=== PATIENT | female | born 1980 | race Caucasian/White ===

== ENCOUNTER 2018-07-30 05:34 | Inpatient (IN) | payer BC ==
[2018-07-30] MEDS ORDERED: cefOXitin 2 GM in Sodium Chloride 0.9% 50 ML IV ONE (06:00)
[2018-07-30] MEDS ORDERED: Dextrose 5%-Lactated Ringers 1,000 ML IV SCH (06:00)
[2018-07-30] MEDS ORDERED: Acetaminophen 500 MG Tab PO ONE (06:00)
[2018-07-30] MEDS ORDERED: Bupivacaine 0.5%/EPINEPHrine 1:200,000 50 ML MDV ONE (06:37)
[2018-07-30] MEDS ORDERED: Rocuronium 50 MG/5 ML Vial ONE ×2 (06:58→09:02)
[2018-07-30] MEDS ORDERED: Dexamethasone 4 MG/ML SDV ONE (06:58)
[2018-07-30] MEDS ORDERED: Glycopyrrolate 0.2 MG/ML 5 ML MDV ONE (06:58)
[2018-07-30] MEDS ORDERED: Propofol 200 MG/20 ML SDV ONE (06:58)
[2018-07-30] MEDS ORDERED: Neostigmine Methylsulfate 1 MG/ML 5 ML Syringe ONE (06:58)
[2018-07-30] MEDS ORDERED: Succinylcholine 200 MG/10 ML MDV ONE (06:58)
[2018-07-30] MEDS ORDERED: Ondansetron 4 MG/2 ML SDV ONE (06:58)
[2018-07-30] MEDS ORDERED: fentaNYL 250 MCG/5 ML SDV ONE ×2 (06:59→08:59)
[2018-07-30] MEDS ORDERED: Midazolam 1 MG/ML 2 ML SDV ONE (06:59)
[2018-07-30] MEDS ORDERED: Ketamine 500 MG/5 ML MDV IV SCH (07:30)
[2018-07-30] MEDS ORDERED: cefOXitin 2 GM Vial ONE (07:59)
[2018-07-30] MEDS ORDERED: Meropenem 500 MG SDV ONE (08:01)
[2018-07-30] MEDS ORDERED: Lactated Ringers 1,000 ML ONE (09:17)
[2018-07-30] MEDS ORDERED: hydrOXYzine HCl 100 MG/2 ML SDV IM ONE (10:07)
[2018-07-30] MEDS ORDERED: fentaNYL 100 MCG/2 ML SDV IVPUSH ONE ×2 (10:32→10:33)
[2018-07-30] MEDS ORDERED: Naloxone 0.4 MG/ML SDV IV PRN (10:38)
[2018-07-30] MEDS: HYDROmorphone/Normal Saline 15 MG/30 ML PCA IV PRN (10:52)
[2018-07-30] MEDS ORDERED: Metoclopramide 10 MG/2 ML SDV IVPUSH PRN (12:04)
[2018-07-30] MEDS ORDERED: HYDROmorphone 1 MG/ML Syringe IV PRN (12:04)
[2018-07-30] MEDS ORDERED: HYDROmorphone 0.5 MG/0.5 ML Syringe IVPUSH PRN (12:04)
[2018-07-30] MEDS ORDERED: hydrOXYzine HCl 100 MG/2 ML SDV IM PRN (12:04)
[2018-07-30] MEDS ORDERED: Labetalol 20 MG/4 ML Syringe IVPUSH PRN (12:04)
[2018-07-30] MEDS ORDERED: diphenhydrAMINE 50 MG/ML SDV IVPUSH PRN (12:04)
[2018-07-30] MEDS ORDERED: Ondansetron 4 MG/2 ML SDV IVPUSH PRN (12:04)
[2018-07-30] MEDS: Sodium Ferric Gluconate Cmplex 250 MG in Sodium Chloride 0.9% 100 ML IV SCH (13:56)
[2018-07-30] MEDS ORDERED: MVI, Adult with Vitamin K 10 ML, Thiamine 200 MG, Chromium/Copper/Mang/Selen/Zn 1 ML in... IV SCH ×4 (16:00)
[2018-07-30] MEDS ORDERED: Pantoprazole 40 MG Vial IVPUSH SCH (16:00)
[2018-07-30] MEDS: cefOXitin 2 GM in Sodium Chloride 0.9% 50 ML IV SCH ×2 (16:21→21:13)
[2018-07-30] MEDS: Heparin Sodium 5,000 Units/ML Vial SUBCUT SCH (16:23)
[2018-07-30] MEDS: Acetaminophen 325 MG Tab PO SCH ×2 (16:24→21:13)
[2018-07-31] MEDS ORDERED: Iopamidol 510 MG/ML 50 ML SDV PO ONE (00:13)
[2018-07-31] MEDS: Dextrose 5%-Lactated Ringers 1,000 ML IV SCH ×2 (00:34→08:00)
[2018-07-31] MEDS: Acetaminophen 325 MG Tab PO SCH ×4 (03:26→21:01)
[2018-07-31] MEDS: Heparin Sodium 5,000 Units/ML Vial SUBCUT SCH ×2 (03:27→16:19)
[2018-07-31] MEDS: cefOXitin 2 GM in Sodium Chloride 0.9% 50 ML IV SCH (03:32)
--- NOTE | 2018-07-31 06:19 | CRLCR ---
Indication: Milena-en-Y gastric bypass. Technique: Abdomen 2 view Comparison: None Findings/Impression: Two submitted images. Image number 1 demonstrates skin saul in a vertical incision pattern, suture material within the left abdomen as well as right upper quadrant surgical clips. Administered oral contrast extends into the distal esophagus as well as the proximal small bowel. Second image shows a small amount of residual contrast in the epigastric region, possibly within bowel as well as progression of the contrast into the mid to distal small bowel. Dictated by Keith Paris MD @ Jul 31 2018 6:16AM Signed by Dr. Keith Paris @ Jul 31 2018 6:18AM
[2018-07-31] MEDS ORDERED: Dextrose 5%-Lactated Ringers 1,000 ML IV SCH (08:15)
[2018-07-31] MEDS: Docusate Sodium 100 MG Cap PO SCH ×2 (10:19→20:14)
[2018-07-31] MEDS: SCOPOLAMINE PATCH CHECK TOP SCH (10:20)
[2018-07-31] MEDS: Magnesium Sulfate/Water 2 GM in Premix Bag 1 BAG IV SCH ×3 (10:21→21:00)
[2018-07-31] MEDS: HYDROmorphone/Normal Saline 15 MG/30 ML PCA IV PRN (12:33)
[2018-07-31] MEDS: Sodium Ferric Gluconate Cmplex 250 MG in Sodium Chloride 0.9% 100 ML IV SCH (13:14)
[2018-07-31] MEDS: MVI, Adult with Vitamin K 10 ML, Thiamine 200 MG, Chromium/Copper/Mang/Selen/Zn 1 ML in... IV SCH ×4 (16:19)
[2018-07-31] MEDS: Pantoprazole 40 MG Delayed-Release Granules 1 Packet PO SCH (16:19)
[2018-07-31] MEDS ORDERED: Tamsulosin 0.4 MG Cap.ER PO ONE ×2 (17:00→21:00)
[2018-08-01] MEDS: Magnesium Sulfate/Water 2 GM in Premix Bag 1 BAG IV SCH ×3 (03:00→15:46)
[2018-08-01] MEDS: Acetaminophen 325 MG Tab PO SCH ×4 (03:01→21:03)
[2018-08-01] MEDS: Heparin Sodium 5,000 Units/ML Vial SUBCUT SCH ×2 (03:01→15:48)
[2018-08-01] MEDS ORDERED: Magnesium Hydroxide 400 MG/5 ML Susp 30 ML Cup PO PRN (08:08)
[2018-08-01] MEDS ORDERED: Tamsulosin 0.4 MG Cap.ER PO ONE (09:00)
[2018-08-01] MEDS ORDERED: Cyanocobalamin (Vitamin B12) 1,000 MCG/ML SDV IM ONE (09:00)
[2018-08-01] MEDS: Bisacodyl 5 MG Tab PO SCH ×2 (09:29→20:50)
[2018-08-01] MEDS: SCOPOLAMINE PATCH CHECK TOP SCH (09:30)
[2018-08-01] MEDS: buPROPion 100 MG Tab PO SCH ×2 (09:30→20:50)
[2018-08-01] MEDS: HYDROmorphone 2 MG Tab PO PRN ×3 (11:28→20:50)
--- NOTE | 2018-08-01 12:07 | PN ---
DATE OF SERVICE: 07/31/2018 The patient has been afebrile with stable vital signs. Still having a fair bit of discomfort at this point and PET CREMATORY WORKER is going for today. Otherwise, upper GI x-ray looks good. We will start a step-3 diet. Magnesium is somewhat low, we will supplement that, and otherwise maximize activity and work with pulmonary toilet. Narendra Marcos MD /[id number]
[2018-08-01] MEDS: MVI, Adult with Vitamin K 10 ML, Thiamine 200 MG, Chromium/Copper/Mang/Selen/Zn 1 ML in... IV SCH ×4 (15:45)
[2018-08-01] MEDS: Pantoprazole 40 MG Delayed-Release Granules 1 Packet PO SCH (15:48)
[2018-08-01] MEDS ORDERED: Tamsulosin 0.4 MG Cap.ER PO SCH (21:00)
[2018-08-02] MEDS: HYDROmorphone 2 MG Tab PO PRN ×3 (01:04→08:51)
[2018-08-02] MEDS: Heparin Sodium 5,000 Units/ML Vial SUBCUT SCH (04:51)
[2018-08-02] MEDS: Acetaminophen 325 MG Tab PO SCH (04:51)
--- NOTE | 2018-08-02 11:12 | PN ---
DATE OF SERVICE: 08/01/2018 The patient has been afebrile with stable vital signs. No significant bowel movement yet, and she was retaining urine, requiring the Lewis catheter to be put back in. We will continue some Flomax, which was started yesterday and try getting the Lewis catheter out today. Otherwise, she can resume bowel stimulation. Oral intake is still a little bit marginal and will leave the IV running at maintenance rate and switch over to oral pain medication, will restart her Wellbutrin, and once her bowels move and after removal of the Lewis catheter tomorrow morning, she may be ready for discharge at that time. Narendra Marcos MD /[id number]
--- NOTE | 2018-08-03 06:43 | DISCH ---
ADMISSION DIAGNOSES: 1. Partial small bowel obstruction. 2. Acute chronic cholecystitis and cholelithiasis, on Single-port Milena-en-Y gastric bypass surgery. 3. Unspecified surgical malabsorption. 4. B12 deficiency. DISCHARGE DIAGNOSES: 1. Laparoscopy with laparoscopic cholecystectomy. 2. Conversion to open laparotomy with lysis of extensive adhesions. 3. Small bowel resection secondary to enterostomy for caodaism of the Milena-en-Y small bowel anatomy. 4. Mobilization of the omentum for chronic cholecystitis and cholelithiasis and partial small bowel obstruction at the jejunojejunostomy. Date of surgery 07/30/2018. Surgeon: Narendra Marcos M.D. 5. Iron deficiency anemia, low ferritin. HISTORY: Angeles Christina is a 37-year-old female with postprandial abdominal pain. After preoperative evaluation and discussion of possible risks and possible complications, she wished to proceed with surgical procedure. HOSPITAL COURSE: Angeles had her surgery on 07/31/2018. She had no operative complications. On postoperative day #1, she was afebrile. Vital signs were stable, and she continued with the JUNIOR ACCOUNT EXECUTIVE. Her upper GI looked good. Magnesium was replaced and she was started on a step 3 diet. On postoperative day #2, she was given some bowel stimulation. She did have a bowel movement in late night emr analyst. She has been ambulating. Oral intake adequate. Vital signs stable, and was ready to be discharged to home on Thursday08/02/2018. While hospitalized, she received 2 iron infusions. PHYSICAL EXAMINATION: GENERAL: Angeles Christina is a 37-year-old female. VITAL SIGNS: Height is 5 feet 3 inches. Weight is 270 pounds, BMI 47.8. TPR is 97.4, 84, 16, blood pressure 119/85. HEENT: Negative. NECK: Supple. HEART: Regular rate and rhythm. LUNGS: Clear. ABDOMEN: Midline stapled incision looks good. Roxy intact. Abdominal binder is on. EXTREMITIES: Without peripheral edema. DISPOSITION: Discharged to home. CONDITION: Stable and improving. FOLLOWUP: With Cierra Velasquez PA-C, at [facility] on 08/10/2018 at 10 a.m. HOME MEDICATIONS: 1. Dilaudid 2 mg one q.4 hours p.r.n. pain #42. 2. She is to resume her home medication of bupropion 100 mg p.o. b.i.d. 3. Multivitamin one twice daily. 4. Magnesium oxide 400 mg daily. 5. Vitamin D3 4000 international units daily. 6. Calcium citrate with vitamin D 1 p.o. twice daily. 7. B complex one daily. 8. Vitron-C one tablet oral daily. 9. Tylenol 650 mg p.o. q.12 hours. DIET: Step 3 gastric bypass diet until next appointment. Drink 8 to 10 glasses of water a day. ACTIVITY: No lifting greater than 10 pounds for 6 weeks. Other activity is walk at least 6 times daily inside your home. Driving, do not drive for 1 week and while on pain medication. Shower/bathing, may shower. Keep operative site clean and dry. Wear abdominal binder for 2 weeks and then as tolerated. Notify provider if any fever, increased pain, nausea or vomiting and use incentive spirometer 10 times every hour while awake for 1 week.
--- NOTE | 2018-08-03 09:37 | OR ---
DATE OF PROCEDURE: 07/30/2018 SURGEON: Narendra Marcos MD PREOPERATIVE DIAGNOSES: 1. Chronic cholecystitis and cholelithiasis. 2. Possible partial small bowel obstruction. POSTOPERATIVE DIAGNOSES: 1. Chronic cholecystitis and cholelithiasis. 2. Partial small bowel obstruction at jejunojejunostomy. 3. Extensive intraabdominal adhesions. OPERATIVE PROCEDURE: 1. Diagnostic laparoscopy with laparoscopic cholecystectomy (47829). 2. Conversion to open laparotomy with lysis of extensive adhesions and: a. Small bowel resection (92143). b. Secondary enteroenterostomy to restore Milena-en-Y small bowel anatomy (98789). c. Mobilization of omentum into pelvis to limit recurrent adhesion formation between pelvic and abdominal wall and underlying viscera (94039). ANESTHESIA: General. BUCKLE GLUER: Cierra Velasquez PA-C INDICATIONS FOR PROCEDURE: This is a 37-year-old, status post previous Milena-en-Y gastric bypass, presenting with recurrent episodes of upper abdominal pain. The pain appears to have 2 ongoing patterns, one is postprandial right upper quadrant pain, which radiates to the back. This is associated with extensive cholelithiasis and is felt to be related to a biliary colic. The patient also has episodes of postprandial crampy pain located in the epigastrium with the discomfort particularly on the left midabdomen suggestive of partial small-bowel obstruction related to a Milena-en-Y gastric bypass. Plan is to proceed with diagnostic laparoscopy, laparotomy if necessary, initial cholecystectomy, dilate the small bowel to see what extent there might be small-bowel obstruction and make corrective actions based on that. If the jejunojejunostomy needs to be resected, the patient has had problems with maintenance of weight loss following her gastric bypass and we would reconstruct via the small bowel anatomy in that case with a more malabsorptive small bowel configuration. She is aware that, if this happens to be done, she would have more frequent loose bowel movements and need to be somewhat more vigilant in terms of protein and vitamin maintenance. Otherwise, the risks of the procedure per se including bleeding, infection, injury to underlying viscera, leaks from various GI tract closures were all reviewed, and the patient wishes to proceed. DETAILS OF PROCEDURE: The patient was taken to the operating room, and after general endotracheal anesthesia was induced, she was placed in a lithotomy position. A Lewis catheter was inserted, and the abdomen prepped and draped. In the left lower quadrant, a transverse incision was made and peritoneal cavity entered under direct vision with an Optiview trocar, inflated to 15 mmHg pressure with CO2. The laparoscope was reintroduced. No underlying trocar insertion site injuries were seen. Following this, eventually 3 additional trocars were placed across the upper and mid abdomen. Initially, gallbladder was retracted upwards, and this was noted to be distended and somewhat edematous particularly in the area of the cystohepatic triangle, dissected with Harmonic scalpel. Some omental adhesions were taken down with Harmonic scalpel, and dissection then began on the gallbladder neck and continued down onto the gallbladder neck- cystic duct junction. Once this area was well delineated, along with the adjacent cystic artery, the gallbladder neck-cystic duct junction was divided with a JAIR stapler, and the underlying cystic artery was then clipped 3 times proximally and divided with Harmonic scalpel. The gallbladder was then dissected off the gallbladder bed and delivered through the epigastric trocar site. Off the field, the gallbladder was opened and was noted to contain innumerable small black stones. At this point, the small bowel was examined. As one traced the Milena limb down towards the jejunojejunostomy, this appeared to be entrapped in quite a bit in the way of adhesions that were fairly posterior and not easily visualized by means of the laparoscopic approach. Given this, decision was made to proceed with a small open laparotomy for correction of this problem. After removal of the trocars, then epigastric incision from the umbilicus roughly a handsbreadth towards the xiphoid was made and carried down through the full-thickness abdominal wall. Upon entering the peritoneal cavity, the area of the jejunojejunostomy was once again addressed. This was noted to be entrapped quite a bit in a way of adhesions. These were freed up with electrocautery, and once these were freed up, it was felt that the patient had what appeared to be a stricture at the point where the Milena limb entered the jejunojejunostomy. At this point, this area was felt to need to be resected. The 3 components of the jejunojejunostomy were then divided with JAIR saul, and the underlying mesentery divided with JAIR saul as well and the specimen delivered from the field. GI tract continuity was then established initially with anastomosis between what had been the distal-most biliopancreatic limb to the proximal common limb with a [id number] enteroenterostomy with internal firing of an Endo-JARI 60 mm stapler. Common opening was closed transversely with the same stapler, the angles anastomosed, and the mesenteric defect was approximated with some 3-0 Vicryl stitch. The Milena limb at this point was noted to measure 80 cm, and our intent at this point is to leave an alimentary limb length of 300 cm. Thus, the ileocecal valve was identified and small bowel marked out back to a point 220 cm proximal to that point. The [id number] enteroenterostomy was accomplished between the Milena limb and the bowel at that level with same sequence of saul as the previous anastomosis. The angles were anastomosed and reinforced with 3-0 Vicryl stitch and the mesenteric defect then closed with a running 2-0 silk stitch to maintain some more permanency to that closure. The abdomen was then examined. No further problems were noted. To limit recurrent adhesion formation between the pelvic and abdominal wall and underlying viscera, the omentum was mobilized downward into the pelvis. This was sutured in the depths of the pelvis behind the urinary bladder with some 3-0 Vicryl stitch, and at that point, the midline fascia approximated with a #2 Vicryl stitch, subcutaneous tissue approximated with some 3-0 Vicryl stitch, and skin with saul. During the procedure, bilateral transversus abdominis plane block had also been placed, and the patient was taken to the recovery room in satisfactory condition. Physician outreach assistant, Cierra Velasquez PA-C, played an essential role in assisting in this case, helping to position the patient, retract structures as needed, and as well as suturing and cutting sutures when indicated. Her presence improved patient's safety and decreased the operative time. Narendra Marcos MD /[id number]
== END 2018-08-02 09:05 | disposition home or self-care (01) | DRG 221 ==
LOC: JP.SDSSCHI 05:34 → JP.SDS 05:34 → EDSTATUS 09:30 → JP.MS 09:30
PROVIDERS: ADMIT Surgery; ATTEND Surgery
PROC: 0FT44ZZ Resection of Gallbladder, Percutaneous Endoscopic Approach (ICD-10-PCS; principal; 2018-07-30)
PROC: 0DB80ZZ Excision of Small Intestine, Open Approach (ICD-10-PCS; principal; 2018-07-30)
PROC: 0DU Gastrointestinal System, Supplement (ICD-10-PCS; principal; 2018-07-30)
DX: K56.51 Intestinal adhesions [bands], with partial obstruction (principal); Z68.41 Body mass index [BMI] 40.0-44.9, adult; K80.66 Calculus of gallbladder and bile duct with acute and chronic cholecystitis without obstruction; K91.2 Postsurgical malabsorption, not elsewhere classified; E66.01 Morbid (severe) obesity due to excess calories; E53.8 Deficiency of other specified B group vitamins; E55.9 Vitamin D deficiency, unspecified; D50.9 Iron deficiency anemia, unspecified; K21.9 Gastro-esophageal reflux disease without esophagitis; F32.9 Major depressive disorder, single episode, unspecified; E28.2 Polycystic ovarian syndrome; K59.00 Constipation, unspecified; R33.9 Retention of urine, unspecified; Z98.84 Bariatric surgery status; Z79.899 Other long term (current) drug therapy
CPT/HCPCS: 36415; 51702; 74240; 80053; 81025; 82607; 82728; 82746; 83735; 84100; 85025; 94762; A9270-GY; C9113; J0171; J0330; J0694; J1100; J1170; J1644; J2001; J2185; J2250; J2405; J2704; J2710; J2795; J2916; J3010; J3410; J3411; J3420; J3475; J3490; J7030; J7042; J7050; J7120; Q9967

== ENCOUNTER 2018-12-10 05:28 | Inpatient (IN) | payer BC ==
[2018-12-10] MEDS ORDERED: Dextrose 5%-Lactated Ringers 1,000 ML IV SCH (05:45)
[2018-12-10] MEDS ORDERED: Acetaminophen 500 MG Tab PO ONE (05:45)
[2018-12-10] MEDS ORDERED: ceFAZolin 2 GM in Premix Bag 1 BAG IV ONE (06:00)
[2018-12-10] MEDS ORDERED: Bupivacaine 0.5%/EPINEPHrine 1:200,000 50 ML MDV ONE (06:29)
[2018-12-10] MEDS ORDERED: Meropenem 500 MG SDV ONE (06:29)
[2018-12-10] MEDS ORDERED: fentaNYL 250 MCG/5 ML SDV ONE (06:47)
[2018-12-10] MEDS ORDERED: Midazolam 1 MG/ML 2 ML SDV ONE (06:47)
[2018-12-10] MEDS ORDERED: Glycopyrrolate 0.2 MG/ML 5 ML MDV ONE (06:49)
[2018-12-10] MEDS ORDERED: Dexamethasone 4 MG/ML SDV ONE (06:49)
[2018-12-10] MEDS ORDERED: Ondansetron 4 MG/2 ML SDV ONE (06:49)
[2018-12-10] MEDS ORDERED: Neostigmine Methylsulfate 1 MG/ML 5 ML Syringe ONE (06:49)
[2018-12-10] MEDS ORDERED: Rocuronium 50 MG/5 ML Vial ONE (06:49)
[2018-12-10] MEDS ORDERED: Propofol 200 MG/20 ML SDV ONE (06:49)
[2018-12-10] MEDS ORDERED: Ketamine 50 MG in Sodium Chloride 0.9% 49.5 ML IV SCH ×4 (07:30)
[2018-12-10] MEDS ORDERED: ceFAZolin 2 GM in Sodium Chloride 0.9% 50 ML IV ONE (07:30)
[2018-12-10] MEDS ORDERED: Ketamine 500 MG/5 ML MDV IV SCH (07:30)
[2018-12-10] MEDS ORDERED: Lidocaine 1% 50 ML MDV ONE (08:02)
[2018-12-10] MEDS ORDERED: fentaNYL 100 MCG/2 ML SDV ONE (08:29)
[2018-12-10] MEDS ORDERED: diphenhydrAMINE 25 MG Cap PO PRN (09:07)
[2018-12-10] MEDS ORDERED: Ondansetron 4 MG/2 ML SDV IVPUSH PRN ×2 (09:07→10:23)
[2018-12-10] MEDS ORDERED: Naloxone 0.4 MG/ML SDV IVPUSH PRN (09:07)
[2018-12-10] MEDS ORDERED: diphenhydrAMINE 50 MG/ML SDV IVPUSH PRN (09:07)
[2018-12-10] MEDS ORDERED: hydrOXYzine HCl 100 MG/2 ML SDV IM ONE (09:09)
[2018-12-10] MEDS: HYDROmorphone/Normal Saline 15 MG/30 ML PCA IV SCH (09:19)
[2018-12-10] MEDS ORDERED: fentaNYL 100 MCG/2 ML SDV IVPUSH ONE (09:39)
[2018-12-10] MEDS ORDERED: Naloxone 0.4 MG/ML SDV IV PRN (10:24)
[2018-12-10] MEDS ORDERED: Cyclobenzaprine 10 MG Tab PO PRN (10:26)
[2018-12-10] MEDS ORDERED: hydrOXYzine HCl 100 MG/2 ML SDV IM PRN (10:26)
[2018-12-10] MEDS ORDERED: Magnesium Sulfate/Water 50 ML IV SCH (10:30)
[2018-12-10] MEDS ORDERED: Magnesium Sulfate/Water 2 GM in Premix Bag 1 BAG IV SCH (10:32)
[2018-12-10] MEDS: buPROPion 100 MG Tab PO SCH ×2 (10:48→20:28)
[2018-12-10] MEDS: Magnesium Sulfate/Water 2 GM in Premix Bag 1 BAG IV SCH ×3 (10:49→22:44)
[2018-12-10] MEDS: Pantoprazole 40 MG Vial IV SCH (10:49)
[2018-12-10] MEDS: Dextrose 5%-Lactated Ringers 1,000 ML IV SCH ×2 (12:25→20:03)
[2018-12-10] MEDS: ceFAZolin 2 GM in Sodium Chloride 0.9% 50 ML IV SCH ×2 (13:02→22:06)
[2018-12-10] MEDS: Sodium Ferric Gluconate Cmplex 250 MG in Sodium Chloride 0.9% 100 ML IV SCH (15:25)
[2018-12-11] MEDS: Dextrose 5%-Lactated Ringers 1,000 ML IV SCH ×3 (00:53→16:31)
[2018-12-11] MEDS: HYDROmorphone/Normal Saline 15 MG/30 ML PCA IV SCH (02:54)
[2018-12-11] MEDS: Magnesium Sulfate/Water 2 GM in Premix Bag 1 BAG IV SCH ×4 (05:26→21:38)
[2018-12-11] MEDS: ceFAZolin 2 GM in Sodium Chloride 0.9% 50 ML IV SCH (06:39)
[2018-12-11] MEDS ORDERED: Acetaminophen 325 MG Tab PO PRN (07:23)
[2018-12-11] MEDS: buPROPion 100 MG Tab PO SCH ×2 (08:10→20:35)
[2018-12-11] MEDS ORDERED: Acetaminophen 500 MG Tab PO PRN (08:18)
[2018-12-11] MEDS: Pantoprazole 40 MG Vial IV SCH (10:47)
[2018-12-11] MEDS: Docusate Sodium 100 MG Cap PO SCH ×2 (10:47→20:35)
[2018-12-11] MEDS: Bisacodyl 5 MG Tab PO SCH ×2 (10:47→20:35)
[2018-12-11] MEDS: Acetaminophen 500 MG Tab PO SCH ×2 (14:10→20:34)
[2018-12-11] MEDS: Sodium Ferric Gluconate Cmplex 250 MG in Sodium Chloride 0.9% 100 ML IV SCH (14:16)
[2018-12-11] MEDS ORDERED: Tamsulosin 0.4 MG Cap.ER PO ONE (16:55)
[2018-12-11] MEDS: Tamsulosin 0.4 MG Cap.ER PO SCH (20:37)
[2018-12-12] MEDS: Dextrose 5%-Lactated Ringers 1,000 ML IV SCH (03:02)
[2018-12-12] MEDS: Acetaminophen 500 MG Tab PO SCH ×4 (03:02→19:36)
[2018-12-12] MEDS: Magnesium Sulfate/Water 2 GM in Premix Bag 1 BAG IV SCH (03:53)
[2018-12-12] MEDS: Docusate Sodium 100 MG Cap PO SCH ×2 (08:41→20:50)
[2018-12-12] MEDS: Pantoprazole 40 MG Tab.CR PO SCH (08:41)
[2018-12-12] MEDS: Bisacodyl 5 MG Tab PO SCH ×2 (08:42→20:50)
[2018-12-12] MEDS: buPROPion 100 MG Tab PO SCH ×2 (08:42→20:51)
[2018-12-12] MEDS: HYDROmorphone 2 MG Tab PO PRN ×4 (08:46→20:54)
[2018-12-12] MEDS ORDERED: Ondansetron 4 MG Tab.DIS PO PRN (09:46)
[2018-12-12] MEDS: Tamsulosin 0.4 MG Cap.ER PO SCH (20:51)
[2018-12-13] MEDS: Acetaminophen 500 MG Tab PO SCH ×2 (02:35→07:45)
[2018-12-13] MEDS: HYDROmorphone 2 MG Tab PO PRN ×2 (02:35→07:45)
[2018-12-13] MEDS: Pantoprazole 40 MG Tab.CR PO SCH (07:46)
--- NOTE | 2018-12-13 08:43 | PN ---
DATE OF SERVICE: 12/11/2018 The patient has been afebrile with stable vital signs. Still having a fair bit of incisional pain, we will leave the ELECTRONIC TESTER going for today. However, we will back down the IV rate, go up to a step-2 diet, add some bowel stimulation, and maximize activity and work with pulmonary toilet. Narendra Marcos MD /[id number]
[2018-12-13] MEDS: buPROPion 100 MG Tab PO SCH (09:06)
[2018-12-13] MEDS: Docusate Sodium 100 MG Cap PO SCH (09:06)
[2018-12-13] MEDS: Bisacodyl 5 MG Tab PO SCH (09:06)
--- NOTE | 2018-12-13 11:19 | OR ---
DATE OF PROCEDURE: 12/10/2018 SURGEON: Narendra Marcos MD PREOPERATIVE DIAGNOSIS: Incisional hernia. POSTOPERATIVE DIAGNOSES: 1. Incarcerated incisional hernia. 2. Extensive intraabdominal adhesions. OPERATIVE PROCEDURES: Diagnostic laparoscopy converted to open laparotomy with: 1. Repair of incarcerated incisional hernia with mesh (06502, [id number]). 2. Placement of Interceed mesh to limit recurrent adhesion formation between pelvic and abdominal wall and underlying viscera (68403). ANESTHESIA: General. SENIOR QA AUTOMATION ENGINEER: Cierra Velasquez PA-C INDICATIONS FOR PROCEDURE: This is a 38-year-old presenting with an incisional hernia located in the supraumbilical area. This had increasingly become symptomatic and enlarging, and the plan is to proceed with a diagnostic laparoscopy, laparotomy if necessary, and repair of the hernia with mesh. Potential risks of the procedure including bleeding, infection, injury to underlying viscera, problems with the mesh becoming infected or the hernia recurring were all reviewed with the patient, and she wishes to proceed. DETAILS OF PROCEDURE: The patient was taken to the operating room, placed in the supine position. After general endotracheal anesthesia was induced, a Lewis catheter was inserted, and the abdomen prepped and draped. In the left lateral abdomen, a transverse incision was made and peritoneal cavity entered under direct vision with an Optiview trocar inflated to 15 mmHg pressure with CO2. The laparoscope was reinserted. No underlying trocar insertion site injuries were seen. Following this, the examination showed a very large fascial defect, as well as fairly intense adhesions into the area of the hernia involving both the omentum and transverse colon. It was felt that this case would be best converted to an open procedure both because of the bowel adhesions densely adherent into the hernia, as well as the size of the fascial defect, the latter of which, closure would provide a more stable abdominal wall underlying the mesh repair. Given this, the trocars were removed, the peritoneal cavity deflated. The previous incision was then excised. This was somewhat hypertrophic at this point and carried down through the skin and subcutaneous tissue and onto the hernia sac. The hernia sac was then dissected in all directions down to the level of the edge of the fascia. The hernia sac was then opened and the adherent portions of the transverse colon and omentum were divided away from the hernia sac. Some of the omentum was excised with the hernia sac and that specimen was then delivered from the field. The area of the defect was then mapped out and a 19 x [address] hernia patch was selected. This was mapped out such that there were roughly 5 cm intervals along its circumference. 2-0 Vicryl sutures were placed, small stab wounds were placed in the abdominal wall, where sutures would be pulled up, thus fixing the mesh well away from the fascial defect. Once these sutures were placed, mesh was soaked in antibiotic-containing saline solution. The upper half of the sutures were then pulled up through the abdominal wall, and at that point to limit recurrent adhesion formation, Interceed mesh was placed underneath the area of the incision, and from there down toward the pelvis to limit recurrent adhesion formation between the mesh and the pelvic and abdominal wall. The remaining sutures were then placed and the mesh was then evaluated and found to be in good position in all directions and the sutures were then tied. Mesh was then additionally fixed to the abdominal wall with titanium tacking screws with these being placed on the top of mesh, thus keeping the screws in direct contact with the underlying viscera. The area was then once again irrigated with antibiotic-containing saline solution. The midline fascia was approximated with #2 Vicryl stitch, subcutaneous tissue with 3-0 Vicryl stitch, and the subdermal tissue with 4-0 Vicryl stitch, and the skin with saul. The patient then received a bilateral transversus abdominis plane block during the procedure and the fascia prior to closure was anesthetized with some 0.5% Marcaine mixed with 1% lidocaine, and the patient taken to the recovery room in satisfactory condition. Physician admissions assistant, Cierra Velasquez, played an essential role in assisting in this case, helping to position the patient, retract structures as needed, as well as suturing and cutting sutures when indicated. Her presence improved patient safety and decreased the operative time. Narendra Marcos MD /[id number]
--- NOTE | 2018-12-13 13:23 | PN ---
DATE OF SERVICE: 12/12/2018 The patient has been afebrile with stable vital signs. She did retain urine after removal of Lewis catheter yesterday and that was replaced. She has gotten 2 doses of Flomax, and we will try getting Lewis catheter out today. Otherwise, we will switch her over from IV to oral Dilaudid and have her get in the shower. She is passing gas, but we will continue the bowel stimulation until bowels move. She will probably be ready for discharge home tomorrow. Narendra Marcos MD /[id number]
--- NOTE | 2018-12-13 13:49 | DISCH ---
ADMISSION DIAGNOSES: 1. Incarcerated incisional hernia. 2. Status post Milena-en-Y gastric bypass surgery. 3. Unspecified surgical malabsorption. 4. B12 deficiency. DISCHARGE DIAGNOSES: Laparoscopic turned to open repair of incarcerated incisional hernia with mesh for incarcerated incisional hernia. Date of surgery: 12/10/2018. Surgeon: Narendra Marcos MD. HISTORY: Angeles Christina is a 38-year-old female with an incarcerated incisional hernia. After preoperative evaluation and discussion of possible risks and possible complications, she wished to proceed with surgical procedure. HOSPITAL COURSE: Angeles had her surgery on 12/10/2018. She had no operative complications. On postoperative day #1, she was started on dietary supplements between meals and a step 4 gastric bypass diet. On postoperative day #2, her catheter was discontinued and she was started on magnesium for low magnesium. Lewis catheter was discontinued. The patient was unable to void for several hours and then she did void 400 and bladder was scanned for 911 mL. Lewis catheter was reinserted on 12/11/2018. Lewis remained in for 24 hours, then was discontinued, and the patient was able to void without difficulty. Oral intake adequate, output adequate. Had several BMs and is voiding without difficulty. We will receive dietary instruction reinforcement today prior to discharge. Remainder of review of systems negative for any pertinent positives and negatives, and the patient was able to be discharged to home on 12/13/2018. PHYSICAL EXAMINATION: GENERAL: Angeles Christina is a 38-year-old female. She is alert, orientated. VITAL SIGNS: TPR is 96.8, 73, 18, blood pressure 121/69. HEENT: Negative. NECK: Supple. HEART: Regular rate and rhythm. LUNGS: Clear. ABDOMEN: Roxy intact. She has a pressure dressing over the former hernia site and the abdominal binder has been on. EXTREMITIES: Without peripheral edema. DISPOSITION: Discharged to home. CONDITION: Stable and improving. FOLLOWUP: On 12/21/2018 at 9:30 a.m. HOME MEDICATIONS: 1. Tylenol 1000 mg every 6 hours p.r.n. pain. 2. Bupropion 100 mg oral twice daily. 3. Colace 100 mg oral twice daily. 4. Dilaudid 2 mg every 6 hours p.r.n. pain, #28. 5. Zofran 4 mg every 4 hours ODT p.r.n. nausea. 6. Flomax 0.4 mg at bedtime, #14. She is to resume all her other home medications and vitamins. DIET: Regular diet as tolerated. Step 4 gastric bypass diet. ACTIVITY: No lifting greater than 10 pounds for 6 weeks. Walk at least 6 times daily inside your home. Driving: Do not drive for 1 week and while on pain medication. Shower/bathing: May shower. DISCHARGE INSTRUCTIONS: Notify provider if any fever, increased pain, nausea, or vomiting. Keep site clean and dry. Wear abdominal binder for 6 weeks with pressure dressing over hernia site. Use incentive spirometer 10 times every hour while awake for 1 week.
== END 2018-12-13 09:37 | disposition home or self-care (01) | DRG 227 ==
LOC: JP.SDSSCHI 05:28 → JP.SDS 05:28 → EDSTATUS 07:15 → JP.MS 08:30
PROVIDERS: ADMIT Surgery; ATTEND Surgery
PROC: 0WUF0JZ Supplement Abdominal Wall with Synthetic Substitute, Open Approach (ICD-10-PCS; principal; 2018-12-10)
PROC: 0WJF4ZZ Inspection of Abdominal Wall, Percutaneous Endoscopic Approach (ICD-10-PCS; 2018-12-10)
PROC: 0DNU0ZZ Release Omentum, Open Approach (ICD-10-PCS; 2018-12-10)
PROC: 0DNL0ZZ Release Transverse Colon, Open Approach (ICD-10-PCS; 2018-12-10)
PROC: 3E0M05Z Introduction of Adhesion Barrier into Peritoneal Cavity, Open Approach (ICD-10-PCS; 2018-12-10)
DX: K43.0 Incisional hernia with obstruction, without gangrene (principal); K66.0 Peritoneal adhesions (postprocedural) (postinfection); K21.9 Gastro-esophageal reflux disease without esophagitis; E66.9 Obesity, unspecified; D50.9 Iron deficiency anemia, unspecified; E53.8 Deficiency of other specified B group vitamins; E55.9 Vitamin D deficiency, unspecified; F33.1 Major depressive disorder, recurrent, moderate; Z88.8 Allergy status to other drugs, medicaments and biological substances; Z68.38 Body mass index [BMI] 38.0-38.9, adult; K90.9 Intestinal malabsorption, unspecified
CPT/HCPCS: 51702; 81025; 88302; 94762; A9270-GY; C1713; C1781; C9113; J0171; J0690; J1100; J1170; J2001; J2020; J2185; J2250; J2405; J2704; J2710; J2795; J2916; J3010; J3410; J3475; J3490; J7030; J7042; J7050